=== PATIENT | male | born 1935 | race African-American/Black ===

== ENCOUNTER → 2017-03-09 | Outpatient (CLI) | payer MEDICARE, OTHER ==
--- NOTE | 2017-03-09 13:48 | KCIC ---
CHEST PA LATERAL History: . Right-sided chest pain after an injury 2 weeks ago. Known history of calcified lung nodule. Right upper chest pain. Comparison: None. Findings: Cardiomediastinal silhouette is within normal limits. Elevation of the right lung base and diaphragm. Hypoexpansion of the right lung. No pneumothorax identified. No evidence of pleural effusion. Right posterolateral fifth rib fracture with minimal displacement. Impression: 1. Minimally displaced fracture of the right posterolateral fifth rib. 2. Elevation of the hemidiaphragm with relative hypoexpansion of the right lung. Electronically signed by: James Teran MD (03/09/2017 1:44 PM) [id number]
== END | disposition home or self-care (01) ==
LOC: KCIC 11:24
PROVIDERS: ATTEND Family Medicine
DX: S22.31XA Fracture of one rib, right side, initial encounter for closed fracture (principal); R91.1 Solitary pulmonary nodule; X58.XXXA Exposure to other specified factors, initial encounter; Y93.9 Activity, unspecified; Y92.89 Other specified places as the place of occurrence of the external cause; Y99.8 Other external cause status
CPT/HCPCS: 71020